=== PATIENT | female | born 1975 | race Hispanic/Latino ===

== ENCOUNTER 2017-09-15 12:50 | Emergency (ER) | payer SELFPAY ==
[2017-09-15] MEDS ORDERED: VITAMIN B-1 100 MG, FOLVITE 1 MG, INFUVITE 10 ML in NACL 0.9% 1000 ML 1,000 ML IV ONE (14:27)
--- NOTE | 2017-09-15 14:33 | Emergency Department Report ---
Chief Complaint: Alcohol Stated Complaint: ETOH ABUSE Time Seen by Provider: 09/15/17 14:11 - HPI History of Present Illness: Patient is a 42-year-old female who is presenting for alcohol detox. Patient has a history of heavy alcohol use which has worsened for the last 6 months since her daughter's left for college. Patient's states that she drinks all day and all night. Patient has been so intoxicated that she's fallen numerous times in the last several days without remembering that she has fallen. Patient has taken Xanax and Vicodin pills from her without his knowledge which she cannot get alcohol. Patient is voluntarily here wanting help for alcohol addiction as well as [id number] drug addiction as well. - ROS Review of Systems: ROS negative except for the elements in the HPI - Exam Vital Signs: Vital Signs 09/15/17 12:54 Temperature 97.3 F L Pulse Rate 104 H Respiratory 16 Rate Blood Pressure 122/75 Blood Pressure 122/75 [Left] O2 Sat by Pulse 99 Oximetry Physical Exam: Physical exam within normal limits. Patient is tearful but alert and oriented 3 with normal heart lung abdomen exam. Patient does have some mild tenderness in the lumbar spine in the midline as well as the paraspinal muscles. MSE screening note: Focused history and physical exam performed. Due to findings the following was ordered: ED Medical Decision Making - Medical Decision Making Patient will be moved to the main psychiatric area pending evaluation ED Disposition for MSE Condition: Stable
[2017-09-15 14:59] LABS: Basophils % (Auto) 1.3 % (0.0-1.8); Hematocrit 37.4 % (30.3-42.9); Mean Corpuscular HGB Conc 32 % (30-34); Mean Corpuscular Hemoglobin 29 pg (28-32); Mean Corpuscular Volume 92 fl (79-97); Platelet Count 212 K/mm3 (140-440); Red Blood Count 4.09 M/mm3 (3.65-5.03); Red Cell Distribution Width 19.7 % (13.2-15.2); White Blood Count 5.8 K/mm3 (4.5-11.0)
[2017-09-15 15:17] LABS: Alanine Aminotransferase 60 units/L (7-56); Albumin 3.3 g/dL (3.9-5); Alkaline Phosphatase 90 units/L (35-129); Anion Gap 21 mmol/L; BUN/Creatinine Ratio 27; Blood Urea Nitrogen 8 mg/dL (7-17); Calcium 8.4 mg/dL (8.4-10.2); Carbon Dioxide 24 mmol/L (22-30); Chloride 99.6 mmol/L (98-107); Glucose 71 mg/dL (65-100); Lipase 20 units/L (13-60); Potassium 4.2 mmol/L (3.6-5.0); Sodium 140 mmol/L (137-145); Total Protein 6.5 g/dL (6.3-8.2)
--- NOTE | 2017-09-15 15:26 | XRay Report ---
Lumbar spine 3 views: X. History: Fall, low back pain. Findings: Normal height of vertebral bodies and intervertebral disc. Normal articular surfaces. No definite evidence of fracture. In the region of the coccyx there is no evidence of acute fracture identified though the gaze not well visualized. Impression: No definite evidence of acute fracture.
[2017-09-15 19:32] LABS: Urine Drugs of Abuse Note Disclamer
[2017-09-15 19:54] LABS: Bilirubin,Urine NEG (Negative); Blood,Urine NEG (Negative); Ketones,Urine NEG (Negative); Leukocyte Esterase,Urine NEG (Negative); Mucus,Urine FEW /HPF; Nitrite,Urine NEG (Negative); Protein,Urine <15 mg/dL mg/dL (Negative); Urobilinogen,Urine < 2.0 mg/dL (<2.0)
[2017-09-15] MEDS ORDERED: TORADOL IV ONE (20:00)
--- NOTE | 2017-09-15 20:02 | Cat Scan Report ---
FINAL REPORT EXAM: CT HEAD/BRAIN WO CON HISTORY: altered mental status after with fall TECHNIQUE: CT head without contrast PRIORS: None. FINDINGS: No acute intra-axial or extra-axial hemorrhage is identified. There is no evidence of midline shift or mass effect. The ventricles and sulci are within normal limits. Siddiqui-white matter differentiation is intact. No acute parenchymal abnormalities seen. Bony calvarium is grossly intact. Visualized portions of the mastoids and paranasal sinuses are unremarkable. IMPRESSION: Negative CT head
--- NOTE | 2017-09-15 20:04 | Cat Scan Report ---
FINAL REPORT EXAM: CT NECK WO CON HISTORY: neck pain after fall TECHNIQUE: CT cervical spine with reconstructions PRIORS: None. FINDINGS: Vertebral bodies demonstrate normal height and alignment. The disk spaces are within normal limits. The facet joints demonstrate normal alignment. The spinous processes are intact. Craniocervical junction is unremarkable. C1 and C2 are intact. IMPRESSION: Negative CT cervical spine. No acute abnormality seen.
--- NOTE | 2017-09-15 22:10 | Emergency Department Report ---
ED Alcohol HPI - General Chief Complaint: Alcohol Stated Complaint: ETOH ABUSE Time Seen by Provider: 09/15/17 14:11 Source: patient Mode of arrival: Wheelchair Limitations: No Limitations - History of Present Illness Initial Comments: Patient and boyfriend both provided history. She has been drinking daily for the last year and prior to that was going taking xanax daily. She has two daughters twins who went to college last year and this reportedly was the beginning of her drinking daily. She has had several occurance with falls and 4 months ago did report she had thought about suicide with the plan to cut her wrist with a knife. The boyfriend reports that in the last 3 days it has been very bad with 3 falls. Once she fell and knocked the TV from its stand and broke TV. Another time she fell and hit her head. She reports head, neck and lumbar pain. She took her boyfriend's pain meds he got for a renal stone. MD Complaint: alcohol intoxication, medical clearance for det Last Drink: just [employer] Chronic Alcohol Use: Yes Previous Visits for Alcohol Intoxication?: No Recent Trauma: Yes (See HPI.) Associated Symptoms: nausea, vomiting, syncope, abdominal pain, depression, suicidality Treatments Prior to Arrival: none - Related Data Allergies Allergy/AdvReac Type Severity Reaction Status Date / Time morphine Allergy Unknown Verified 09/15/17 12:54 ED Review of Systems ROS: Stated complaint: ETOH ABUSE Other details as noted in HPI Constitutional: denies: chills, fever Eyes: denies: eye pain, eye discharge, vision change ENT: denies: ear pain, throat pain Respiratory: denies: cough, shortness of breath, wheezing Cardiovascular: denies: chest pain, palpitations Endocrine: no symptoms reported Gastrointestinal: denies: abdominal pain, nausea, diarrhea Genitourinary: denies: urgency, dysuria, discharge Musculoskeletal: back pain, other (neck pain ). denies: joint swelling, arthralgia Skin: denies: rash, lesions Neurological: headache, weakness, abnormal gait. denies: paresthesias Psychiatric: anxiety, depression, suicidal thoughts Hematological/Lymphatic: denies: easy bleeding, easy bruising ED Past Medical Hx - Social History Smoking Status: Current Every Day Smoker Substance Use Type: Alcohol, Prescribed ED Physical Exam - General Limitations: No Limitations General appearance: alert, appears intoxicated, lethargic - Head Head exam: Present: atraumatic, normocephalic, other (TTP in occiput.) - Eye Eye exam: Present: normal appearance Pupils: Present: normal accommodation - ENT ENT exam: Present: normal exam, normal orophraynx, mucous membranes dry, mucous membranes moist, TM's normal bilaterally, normal external ear exam - Neck Neck exam: Present: normal inspection, tenderness (paraspinal ) - Respiratory Respiratory exam: Present: normal lung sounds bilaterally. Absent: respiratory distress - Cardiovascular Cardiovascular Exam: Present: regular rate, normal rhythm. Absent: systolic murmur, diastolic murmur, rubs, gallop - GI/Abdominal GI/Abdominal exam: Present: soft, normal bowel sounds - Extremities Exam Extremities exam: Present: normal inspection - Back Exam Back exam: Present: normal inspection, full ROM, muscle spasm, paraspinal tenderness - Neurological Exam Neurological exam: Present: alert, oriented X3 - Psychiatric Psychiatric exam: Present: normal affect, normal mood - Skin Skin exam: Present: warm, dry, intact, normal color. Absent: rash ED Course Vital Signs 09/15/17 09/15/17 09/15/17 12:54 15:21 15:30 Temperature 97.3 F L Pulse Rate 104 H 73 Respiratory 16 13 Rate Blood Pressure 122/75 91/55 Blood Pressure 122/75 [Left] O2 Sat by Pulse 99 99 98 Oximetry 09/15/17 09/15/17 09/15/17 15:46 16:00 16:16 Temperature 98.4 F Pulse Rate 88 71 71 Respiratory 12 12 14 Rate Blood Pressure 91/55 95/62 90/55 Blood Pressure 91/51 [Left] O2 Sat by Pulse 99 99 98 Oximetry 09/15/17 09/15/17 09/15/17 16:30 16:46 17:00 Temperature Pulse Rate 75 83 70 Respiratory 13 11 L 10 L Rate Blood Pressure 90/55 103/68 103/68 Blood Pressure 96/65 [Left] O2 Sat by Pulse 100 100 99 Oximetry 09/15/17 09/15/17 09/15/17 17:16 17:30 17:46 Temperature Pulse Rate 67 82 65 Respiratory 26 H 16 14 Rate Blood Pressure 95/65 95/65 95/65 Blood Pressure [Left] O2 Sat by Pulse 99 Oximetry 09/15/17 09/15/17 09/15/17 18:00 18:16 18:30 Temperature Pulse Rate 71 76 78 Respiratory 15 14 12 Rate Blood Pressure 95/65 95/65 95/65 Blood Pressure [Left] O2 Sat by Pulse Oximetry 09/15/17 09/15/17 09/15/17 18:46 19:06 19:19 Temperature Pulse Rate 72 Respiratory 14 Rate Blood Pressure 95/65 148/110 110/46 Blood Pressure [Left] O2 Sat by Pulse 100 100 Oximetry 09/15/17 09/15/17 09/15/17 19:30 19:46 20:00 Temperature Pulse Rate Respiratory Rate Blood Pressure 110/46 108/77 106/68 Blood Pressure [Left] O2 Sat by Pulse 99 97 100 Oximetry 09/15/17 09/15/17 09/15/17 20:15 20:30 20:45 Temperature Pulse Rate Respiratory Rate Blood Pressure 108/77 109/69 109/69 Blood Pressure [Left] O2 Sat by Pulse 100 96 99 Oximetry 09/15/17 09/15/17 09/15/17 21:01 21:15 21:30 Temperature Pulse Rate Respiratory Rate Blood Pressure 108/85 109/69 110/78 Blood Pressure [Left] O2 Sat by Pulse 97 75 L 98 Oximetry 09/15/17 21:45 Temperature Pulse Rate Respiratory Rate Blood Pressure 110/78 Blood Pressure [Left] O2 Sat by Pulse 100 Oximetry ED Medical Decision Making - Lab Data Result diagrams: 09/15/17 14:45 09/15/17 14:45 Labs remarkable for alcohol of 260, elevated liver enzymes, low albumin, and UDS with benzos. - Radiology Data Radiology results: report reviewed Head and neck CT: no acute findings. Lumbar XR: no acute findings. - Medical Decision Making Patient medially cleared to go to alcohol rehab for which she wants to go. Psych Zandra, saw the patient due to the SI stated but since it was over 4 months ago with no recent SI she did not need to be 1013 currently. She will get a banana back and hydrated. She will stay here until she can be transferred to a rehab facility. We have controlled her pain which appears to be musculoskeletal. She will get muscle relaxors from this point on. Critical care attestation.: If time is entered above; I have spent that time in minutes in the direct care of this critically ill patient, excluding procedure time. ED Disposition Clinical Impression: Alcohol abuse, Neck pain Headache Qualifiers: Headache type: post-traumatic Headache chronicity pattern: acute headache Intractability: intractable Qualified Code(s): G44.311 - Acute post-traumatic headache, intractable Fall Qualifiers: Encounter type: initial encounter Qualified Code(s): W19.XXXA - Unspecified fall, initial encounter Acute lumbar back pain Qualifiers: Back pain laterality: bilateral Sciatica presence: without sciatica Qualified Code(s): M54.5 - Low back pain Disposition: DC/TX-65 PSY HOSP/PSY UNIT Is pt being admited?: No Does the pt Need Aspirin: No Condition: Stable Instructions: Abuse of Alcohol (ED), Fall Prevention (ED) Referrals: [facility] [place] [Outside] - 3-5 Days Time of Disposition: 22:23 (Patient to be held until placement is set up.)
[2017-09-16] MEDS ORDERED: ATIVAN IV PRN ×2 (00:48)
[2017-09-16] MEDS ORDERED: ZOFRAN IV ONE (00:50)
[2017-09-16] MEDS: ATIVAN IV PRN ×2 (01:39→11:31)
[2017-09-16] MEDS ORDERED: FLEXERIL PO ONE (01:40)
[2017-09-16] MEDS ORDERED: PROTONIX IV ONE (15:59)
[2017-09-16 19:36] VITALS: BP 102/68
== END 2017-09-16 21:11 ==
LOC: ED 12:50 → EEVIPCON 12:50 → ED 09-16 21:11
DX: F10.10 Alcohol abuse, uncomplicated (principal); M54.2 Cervicalgia; M54.5 Low back pain; R51 Headache; R10.9 Unspecified abdominal pain; R55 Syncope and collapse; F17.200 Nicotine dependence, unspecified, uncomplicated; Z88.6 Allergy status to analgesic agent
CPT/HCPCS: 36415; 70450; 70490; 72100; 80053; 80307; 81001; 83690; 83735; 85025; 96365; 96366; 96375; 99285; C9113; G0480; J1885; J2060; J2405; J3411; J7030; 80320

== ENCOUNTER 2021-11-04 14:06 | Emergency (ER) | payer SELFPAY ==
[2021-11-04] MEDS ORDERED: ASPIRIN 325 MG TAB PO ONE (14:44)
[2021-11-04] MEDS ORDERED: IBUPROFEN 800 MG TAB PO ONE (15:17)
[2021-11-04] MEDS ORDERED: HYDROcodone/ACETAMINOPHEN 5-325 MG TAB PO ONE ×2 (15:17→17:56)
--- NOTE | 2021-11-04 15:19 | XRay Report ---
CHEST 2 VIEWS INDICATION / CLINICAL INFORMATION: sob. COMPARISON: None available. FINDINGS: SUPPORT DEVICES: None. HEART / MEDIASTINUM: No significant abnormality. LUNGS / PLEURA: No significant pulmonary or pleural abnormality. No pneumothorax. ADDITIONAL FINDINGS: No significant additional findings. IMPRESSION: 1. No acute findings. Signer Name: Alf Mena MD Signed: 11/04/2021 3:15 PM Workstation Name: [id number]
[2021-11-04 15:37] LABS: Basophils % (Auto) 0.7 % (0.0-1.8); Eosinophils # (Auto) 0.1 K/mm3 (0.0-0.4); Eosinophils % (Auto) 1.5 % (0.0-4.3); Hemoglobin 9.7 gm/dl (10.1-14.3); Lymphocytes # (Auto) 1.5 K/mm3 (1.2-5.4); Lymphocytes % (Auto) 24.2 % (13.4-35.0); Mean Corpuscular HGB Conc 31 % (30-34); Mean Corpuscular Volume 77 fl (79-97); Monocytes # (Auto) 0.5 K/mm3 (0.0-0.8); Monocytes % (Auto) 8.9 % (0.0-7.3); Platelet Count 304 K/mm3 (140-440); Red Blood Count 4.04 M/mm3 (3.65-5.03)
[2021-11-04 15:38] LABS: Red Cell Distribution Width 21.1 % (13.2-15.2)
[2021-11-04] MEDS ORDERED: KETOROLAC 30 MG/1 ML INJ IM ONE (15:40)
--- NOTE | 2021-11-04 16:39 | Vascular Lab Report ---
DUPLEX DOPPLER LOWER EXTREMITY VEINS, BILATERAL INDICATION / CLINICAL INFORMATION: bilateral leg pain hx of DVT. TECHNIQUE: Duplex doppler imaging was performed through the veins of both lower extremities using red ous compression and other maneuvers. COMPARISON: None available. FINDINGS: RIGHT COMMON FEMORAL VEIN: Negative. RIGHT FEMORAL VEIN: Negative. RIGHT POPLITEAL VEIN: Negative. RIGHT CALF VEINS: Negative. LEFT COMMON FEMORAL VEIN: Negative. LEFT FEMORAL VEIN: Negative. LEFT POPLITEAL VEIN: Negative. LEFT CALF VEINS: Negative. ADDITIONAL FINDINGS: None. IMPRESSION: 1. No sonographic evidence for DVT in either lower extremity. Signer Name: Alf Mena MD Signed: 11/04/2021 4:35 PM Workstation Name: [id number]
[2021-11-04 16:41] LABS: Alanine Aminotransferase 26 units/L (7-56); Albumin 2.8 g/dL (3.9-5); BUN/Creatinine Ratio 11; Blood Urea Nitrogen 9 mg/dL (7-17); Calcium 8.6 mg/dL (8.4-10.2); Hemolysis Index 36
--- NOTE | 2021-11-04 17:54 | Emergency Department Report ---
ED General Adult HPI - General Chief complaint: Extremity Problem,Nontraumatic Stated complaint: CALVES PAIN PUI?: No Time Seen by Provider: 11/04/21 15:15 Source: patient Mode of arrival: Wheelchair Limitations: No Limitations - History of Present Illness Initial comments: Chief complaint: My legs just hurt. HPI: This is a 46-year-old female with history of anxiety, bilateral DVT, cervical and lumbar degenerative disc disease, irregular heartbeat who presents with bilateral leg pain. She has bilateral foot numbness also. Diffuse bilateral leg pain sharp achy without trauma. Previously took Eliquis for DVT. Pain at times localizes to region behind her knees. Severity scale (0 -10): 5 Quality: aching Consistency: constant Improves with: none Worsens with: none Associated Symptoms: denies other symptoms Treatments Prior to Arrival: none - Related Data Previous Rx's Medication Instructions Recorded Last Taken Type Cyclobenzaprine [Flexeril] 10 mg PO TID PRN #30 11/04/21 Unknown Rx HYDROcodone/APAP 5-325 [Franklin 1 each PO Q6HR PRN #10 tablet 11/04/21 Unknown Rx 5/325] Allergies Allergy/AdvReac Type Severity Reaction Status Date / Time morphine Allergy Unknown Verified 11/04/21 14:09 ED Review of Systems ROS: Stated complaint: CALVES PAIN Other details as noted in HPI Comment: All other systems reviewed and negative Constitutional: denies: chills, fever, malaise Respiratory: denies: cough, shortness of breath Cardiovascular: denies: chest pain Gastrointestinal: denies: abdominal pain Neurological: numbness. denies: abnormal gait ED Past Medical Hx - Past Medical History Previous Medical History?: Yes Hx Deep Vein Thrombosis: Yes Hx Psychiatric Treatment: Yes (Anxiety) Additional medical history: Cervical and lumbar degenerative disc disease - Surgical History Past Surgical History?: Yes Additional Surgical History: Gastric bypass - Social History Smoking Status: Current Every Day Smoker Substance Use Type: Alcohol, Prescribed - Medications Home Medications: Home Medications Medication Instructions Recorded Confirmed Last Taken Type Cyclobenzaprine [Flexeril] 10 mg PO TID PRN #30 11/04/21 Unknown Rx HYDROcodone/APAP 5-325 [Franklin 1 each PO Q6HR PRN #10 tablet 11/04/21 Unknown Rx 5/325] ED Physical Exam - General Limitations: No Limitations General appearance: alert, in no apparent distress - Head Head exam: Present: atraumatic, normocephalic - Eye Eye exam: Present: normal appearance - ENT ENT exam: Present: mucous membranes moist - Neck Neck exam: Present: normal inspection, full ROM - Respiratory Respiratory exam: Present: normal lung sounds bilaterally. Absent: respiratory distress, wheezes, rales, rhonchi - Cardiovascular Cardiovascular Exam: Present: regular rate, normal rhythm, normal heart sounds. Absent: systolic murmur, diastolic murmur, rubs, gallop - GI/Abdominal GI/Abdominal exam: Present: soft, normal bowel sounds. Absent: distended, tenderness, guarding, rebound - Extremities Exam Extremities exam: Present: normal inspection, other (2+ DP pulses bilaterally, normal skin color, no edema, intact strength bilaterally of the lower extremities.) - Back Exam Back exam: Present: normal inspection - Neurological Exam Neurological exam: Present: alert, oriented X3 - Psychiatric Psychiatric exam: Present: normal affect, normal mood - Skin Skin exam: Present: warm, dry, intact, normal color. Absent: rash ED Course Vital Signs 11/04/21 11/04/21 14:07 15:55 Temperature 98.9 F 97.9 F Pulse Rate 103 H 71 Respiratory 20 16 Rate Blood Pressure 136/87 122/74 [Left] O2 Sat by Pulse 100 100 Oximetry ED Medical Decision Making - Lab Data Result diagrams: 11/04/21 15:22 11/04/21 15:22 Laboratory Results - last 24 hr 11/04/21 11/04/21 15:22 15:22 WBC 6.2 RBC 4.04 Hgb 9.7 L Hct 31.0 MCV 77 L MCH 24 L MCHC 31 RDW 21.1 H Plt Count 304 Lymph % (Auto) 24.2 [place] % (Auto) 8.9 H Eos % (Auto) 1.5 Baso % (Auto) 0.7 Lymph # (Auto) 1.5 [place] # (Auto) 0.5 Eos # (Auto) 0.1 Baso # (Auto) 0.0 Seg Neutrophils % 64.7 Seg Neutrophils # 4.0 Sodium 134 L Potassium 4.3 Chloride 99.5 Carbon Dioxide 24 Anion Gap 15 BUN 9 Creatinine 0.8 Estimated GFR > 60 BUN/Creatinine Ratio 11 Glucose 111 H Calcium 8.6 Total Bilirubin 0.50 AST 42 H ALT 26 Alkaline Phosphatase 129 Total Protein 6.7 Albumin 2.8 L Albumin/Globulin Ratio 0.7 - EKG Data -: EKG Interpreted by Me EKG shows normal: sinus rhythm Rate: tachycardia - EKG Data 11/04/21 17:52 EKG obtained 1416 EKG interpreted by me 100 bpm normal sinus rhythm normal axis normal intervals no ST elevation nonspecific T wave pattern - Radiology Data Radiology results: report reviewed Patient Name: ANNY LOBATO Gender: Female Date of : 1975 Referring Provider: HAO MEJÍA Organization: [facility] Accession Number: [id number] Requested Date: November 04, 2021 15:16 Report Status: Final Requested Procedure: 1 Procedure Description: VL venous duplex LE BILAT Modality: VL Findings Reporting MD: Alf Mena Dictation Time: November 04, 2021 15:35 Chairlift Operator: Not available Ux Lead Date: DUPLEX DOPPLER LOWER EXTREMITY VEINS, BILATERAL INDICATION / CLINICAL INFORMATION: bilateral leg pain hx of DVT. TECHNIQUE: Duplex doppler imaging was performed through the veins of both lower extremities using venous compression and other maneuvers. COMPARISON: None available. FINDINGS: RIGHT COMMON FEMORAL VEIN: Negative. RIGHT FEMORAL VEIN: Negative. RIGHT POPLITEAL VEIN: Negative. RIGHT CALF VEINS: Negative. LEFT COMMON FEMORAL VEIN: Negative. LEFT FEMORAL VEIN: Negative. LEFT POPLITEAL VEIN: Negative. LEFT CALF VEINS: Negative. ADDITIONAL FINDINGS: None. IMPRESSION: 1. No sonographic evidence for DVT in either lower extremity. Signer Name: Alf Mena MD Signed: 11/04/2021 3:35 PM Workstation Name: [employer] Patient Name: ANNY LOBATO Gender: Female Date of : 1975 Referring Provider: HAO MEJÍA Organization: [facility] Accession Number: [id number] Requested Date: November 04, 2021 14:44 Report Status: Final Requested Procedure: 1 Procedure Description: XR chest routine 2V Modality: XR Findings Reporting MD: Alf Mena Dictation Time: November 04, 2021 14:15 Chairlift Operator: Not available Ux Lead Date: CHEST 2 VIEWS INDICATION / CLINICAL INFORMATION: sob. COMPARISON: None available. FINDINGS: SUPPORT DEVICES: None. HEART / MEDIASTINUM: No significant abnormality. LUNGS / PLEURA: No significant pulmonary or pleural abnormality. No pneumothorax. ADDITIONAL FINDINGS: No significant additional findings. IMPRESSION: 1. No acute findings. Signer Name: Alf Mena MD Signed: 11/04/2021 2:15 PM Workstation Name: [id number] - Medical Decision Making Lumbar radiculopathy suspected without evidence of DVT. Differential diagnosis includes peripheral neuropathy related to autoimmune disease. However without concomitant symptoms I have low suspicion of rheumatological disorder. Patient is neurologically intact. No evidence of cauda equina or cord compression. She does not have bowel or bladder incontinence. No fever. I have prescribed Franklin and Flexeril. Referred to process control specialist. Also encouraged her to follow-up with her primary care provider at the [facility]. In the emergency department patient received IM ketorolac and p.o. Franklin. Critical care attestation.: If time is entered above; I have spent that time in minutes in the direct care of this critically ill patient, excluding procedure time. ED Disposition Clinical Impression: Lumbar radiculopathy, acute Disposition: 01 HOME / SELF CARE / HOMELESS Is pt being admited?: No Does the pt Need Aspirin: No Condition: Stable Instructions: Radicular Pain, Degenerative Disk Disease Prescriptions: Cyclobenzaprine [Flexeril] 10 mg PO TID PRN #30 PRN Reason: Muscle Spasm HYDROcodone/APAP 5-325 [Franklin 5/325] 1 each PO Q6HR PRN #10 tablet PRN Reason: Pain Referrals: ZULEMA LEE II, MD [Staff Physician] - 3-5 Days PRIMARY CAREMD [Primary Care Provider] - 3-5 Days
[2021-11-04 18:12] VITALS: BP 121/79
--- NOTE | 2021-11-05 10:22 | Electrocardiograph Report ---
[facility] Test Date: 2021-11-04 Test Time: 14:16:18 Pat Name: ANNY LOBATO Department: Room: Gender: F Safety Officer: TV : 1975 Requested By: HAO MEJÍA Order Number: [id number] Reading MD: Sherrie Anna Measurements Intervals [place] Rate: 105 P: -53 MO: 131 QRS: 1 QRSD: 85 T: -14 QT: 338 QTc: 448 Interpretive Statements Very poor quality ECG Probably sinus tachycardia Low voltage, precordial leads Nonspecific T abnormalities, anterior leads No previous ECG available for comparison Electronically Signed On 11-05-2021 10:21:39 EST by Sherrie Anna
== END 2021-11-04 18:08 | disposition home or self-care (01) ==
LOC: ED 14:06
DX: M54.16 Radiculopathy, lumbar region (principal); F17.200 Nicotine dependence, unspecified, uncomplicated; F10.20 Alcohol dependence, uncomplicated; F41.9 Anxiety disorder, unspecified
CPT/HCPCS: 36415; 71046; 80053; 85025; 93005; 93010; 93970; 96372; 99284; J1885

== ENCOUNTER 2021-11-20 16:28 | Emergency (ER) | payer SELFPAY ==
[2021-11-20] MEDS ORDERED: SODIUM CHLORIDE 0.9% 1000 ML 1,000 ML IV ONE (16:35)
--- NOTE | 2021-11-20 16:35 | Emergency Department Report ---
ED General Adult HPI - General Chief complaint: Weakness Stated complaint: WEAKNESS Time Seen by Provider: 11/20/21 16:34 Source: patient, EMS Mode of arrival: Ambulatory Limitations: No Limitations - History of Present Illness Initial comments: Patient was brought in by ambulance secondary to weakness. What she tells me is that she has had left-sided numbness and tingling involving the arm, leg, and face for several weeks. She admits that she was seen here several weeks ago because of calf pain and was concerned for a blood clot. We told her that it was not a blood clot. She tried to follow-up with [facility]. They have not seen her as of yet. Patient was having a headache that was ongoing. She still had these numbness and tingling in the left arm and left leg. She decided to call an ambulance today. She states that she feels weak all over. There has been no change in vision. She has no change in taste or smell. The numbness and tingling seems to be constant. She states that the headache is global and diffuse. It is throbbing and pounding. She has not taken anything yet for the headache. Patient states that she has never had symptoms like this before. - Related Data Previous Rx's Medication Instructions Recorded Last Taken Type Cyclobenzaprine [Flexeril] 10 mg PO TID PRN #30 11/04/21 Unknown Rx HYDROcodone/APAP 5-325 [[place] 1 each PO Q6HR PRN #10 tablet 11/04/21 Unknown Rx 5/325] Allergies Allergy/AdvReac Type Severity Reaction Status Date / Time morphine Allergy Unknown Verified 11/20/21 16:33 ED Review of Systems ROS: Stated complaint: WEAKNESS Other details as noted in HPI Comment: All other systems reviewed and negative Constitutional: denies: fever Eyes: denies: vision change ENT: denies: throat pain Respiratory: denies: cough Cardiovascular: denies: chest pain Endocrine: denies: unexplained weight loss Gastrointestinal: denies: abdominal pain Genitourinary: denies: dysuria Musculoskeletal: denies: back pain Skin: denies: rash Neurological: as per HPI Hematological/Lymphatic: denies: easy bruising ED Past Medical Hx - Past Medical History Hx Deep Vein Thrombosis: Yes Hx Psychiatric Treatment: Yes (Anxiety) Additional medical history: Cervical and lumbar degenerative disc disease - Surgical History Additional Surgical History: Gastric bypass - Family History Family history: other (Negative for stroke) - Social History Smoking Status: Current Every Day Smoker (We discussed tobacco cessation) Substance Use Type: Alcohol, Prescribed - Medications Home Medications: Home Medications Medication Instructions Recorded Confirmed Last Taken Type Cyclobenzaprine [Flexeril] 10 mg PO TID PRN #30 11/04/21 Unknown Rx HYDROcodone/APAP 5-325 [[place] 1 each PO Q6HR PRN #10 tablet 11/04/21 Unknown Rx 5/325] ED Physical Exam - General Limitations: No Limitations, Other (Pulse ox noted and normal) General appearance: alert, in no apparent distress, obese - Head Head exam: Present: atraumatic, normocephalic - Eye Eye exam: Present: normal appearance, PERRL, EOMI. Absent: scleral icterus - ENT ENT exam: Present: mucous membranes dry, normal external ear exam - Neck Neck exam: Present: normal inspection. Absent: meningismus - Respiratory Respiratory exam: Present: normal lung sounds bilaterally. Absent: respiratory distress - Cardiovascular Cardiovascular Exam: Present: regular rate, normal rhythm - GI/Abdominal GI/Abdominal exam: Present: soft. Absent: distended, tenderness - Extremities Exam Extremities exam: Present: normal capillary refill. Absent: pedal edema - Back Exam Back exam: Absent: CVA tenderness (R), CVA tenderness (L) - Neurological Exam Neurological exam: Present: alert, oriented X3, CN II-XII intact, motor sensory deficit (Patient reports subjective numbness involving the entire left side of her body), reflexes normal, other (There is no pronator drift or dysdiadochokinesia.) - Psychiatric Psychiatric exam: Present: anxious - Skin Skin exam: Present: warm, dry ED Course Vital Signs 11/20/21 11/20/21 16:29 17:13 Temperature 98.6 F 98.2 F Pulse Rate 95 H 83 Respiratory 18 20 Rate Blood Pressure 125/84 135/87 [Left] O2 Sat by Pulse 99 100 Oximetry - Reevaluation(s) Reevaluation #1: 11/20/21 16:34 EMS was met upon arrival. Old records reviewed. IV and labs were ordered. Reevaluation #2: 11/20/21 18:42 Work-up was complete and the patient was discharged ED Medical Decision Making - Lab Data Result diagrams: 11/20/21 16:43 11/20/21 16:43 - Radiology Data Radiology results: report reviewed - Medical Decision Making Patient presented by EMS secondary to weakness. What she described to me was feeling weak all over with having left-sided paresthesias. This has been going on for weeks according to her. It did not wax and wane. She had a headache associated with this. There was no CT evidence of acute stroke. There is no mass or bleed. There is no subdural or epidural hematomas. She does not have any obvious electrolyte derangement that would account for paresthesias. Calcium is slightly off, but it is not to the point that it would cause significant issues. She was treated symptomatically and referred for outpatient evaluation and follow-up. Critical Care Time: No Critical care attestation.: If time is entered above; I have spent that time in minutes in the direct care of this critically ill patient, excluding procedure time. ED Disposition Clinical Impression: Generalized headache, Paresthesia of left arm and leg Disposition: HOME / SELF CARE / HOMELESS Is pt being admited?: No Condition: Stable Instructions: Peripheral Neuropathy, Paresthesia, Form - Headache Record Additional Instructions: Drink plenty water. Return for problems. Follow-up with your family doctor or the referral doctor for recheck. Continue home medication. Use Tums to build up your calcium. Referrals: PRIMARY CAREMD [Primary Care Provider] - 3-5 Days ERMA DACOSTA MD [Staff Physician] - 3-5 Days - Assessment Assessment Interval: Baseline - Level of Consciousness 1a. Level of Consciousness: alert/keenly responsive - LOC Questions 1b. LOC Questions: answers both correctly - LOC Command 1c. LOC Commands: performs tasks correctly - Best Gaze 2. Best Gaze: normal - Visual 3. Visual: no visual loss - Facial Palsy 4. Facial Palsy: normal symmetrical movement - Motor Arm 5a. Motor Arm Left: no drift 5b. Motor Arm Right: no drift - Motor Leg 6a. Motor Leg Left: no drift 6b. Motor Leg Right: no drift - Limb Ataxia 7. Limb Ataxia: absent - Sensory 8. Sensory: mild/moderate sensory loss - Best Language 9. Best Language: no aphasia - Dysarthria 10. Dysarthria: normal - Extinction and Inattention 11. Extinction/Inattention: no abnormality - Scoring Total Score: 1 Stroke Severity: Minor Stroke
[2021-11-20 17:05] LABS: Hematocrit 30.4 % (30.3-42.9); Mean Corpuscular HGB Conc 33 % (30-34); Mean Corpuscular Volume 79 fl (79-97); Platelet Count 296 K/mm3 (140-440); Red Blood Count 3.86 M/mm3 (3.65-5.03)
[2021-11-20 17:07] LABS: Red Cell Distribution Width 25.9 % (13.2-15.2)
[2021-11-20 17:18] LABS: Blood Urea Nitrogen 11 mg/dL (7-17); Calcium 8.1 mg/dL (8.4-10.2); Hemolysis Index 51
[2021-11-20 17:24] LABS: BUN/Creatinine Ratio 16
--- NOTE | 2021-11-20 18:04 | Cat Scan Report ---
CT BRAIN: 11/20/2021 INDICATION / CLINICAL INFORMATION: huerta w/left arm/leg numbness. COMPARISON: None available. FINDINGS: BRAIN/INTRACRANIAL STRUCTURES: Unenhanced CT images of the brain demonstrate no evidence of acute abn ormality. Ventricles and sulci are normal in size and shape for a patient of this age. There is no evidence of acute ischemic injury, hemorrhage, or mass. There are no abnormal extra-axial fluid collections. EXTRACRANIAL STRUCTURES: Unremarkable. IMPRESSION: No acute abnormality. No significant change when compared to 09/15/2017. All CT scans at this location are performed using dose reduction to ALARA by means of automated expos ure control. Signer Name: Leonel Rodriguez MD Signed: 11/20/2021 6:00 PM Workstation Name: [id number]
[2021-11-20 19:18] VITALS: BP 112/78
== END 2021-11-20 19:17 | disposition home or self-care (01) ==
LOC: ED 16:28
DX: R51.9 Headache, unspecified (principal); R20.2 Paresthesia of skin; F17.200 Nicotine dependence, unspecified, uncomplicated; F10.20 Alcohol dependence, uncomplicated; F41.9 Anxiety disorder, unspecified; Z88.5 Allergy status to narcotic agent
CPT/HCPCS: 36415; 70450; 80048; 83735; 85027; 96360; 99284; J7030; Q0162